=== PATIENT | female | born 1990 | race Caucasian/White ===

== ENCOUNTER 2017-07-12 12:52 | Observation (INO) | payer OTHER ==
[~2017-07-12] VITALS: Ht 160 cm; Wt 58.3 kg
[2017-07-12] VITALS (138 sets, daily range): BP systolic 97–130; BP diastolic 71–86; PULSE 74–86; TEMP 97.5–98.2; O2SAT 96–100
[2017-07-12] MEDS ORDERED: INDERAL 20MG20 MG PO (13:09)
[2017-07-12] MEDS ORDERED: TYLENOL 325MG325 MG PO (13:11)
[2017-07-13 00:18] VITALS: BP 123/68; PULSE 71; TEMP 97.7
[2017-07-13 03:58] VITALS: BP 110/70; PULSE 68; TEMP 98.2
[2017-07-13 06:37] LABS: BASO # 0.1 (0.0-0.2); BASO % 0.8 % (0.0-2.0); EOS # 0.1 (0.0-0.7); EOS % 1.1 % (0-4.0); GRAN # 4.3 (1.4-6.5); GRAN % 53.6 % (42.2-75.2); LYMPH # 2.7 (1.2-3.4); LYMPH % 34.1 % (20.0-51.0); MEAN CELL VOLUME 82 fl (80.0-100.0); MEAN CORPUSCULAR HGB CONC 32 g/dl (33.0-37.0); MEAN PLATELET VOLUME 10.1 fl (7.4-10.4); MONO # 0.8 (0.1-0.6); MONO % 10.1 % (1.7-9.3); PLATELET COUNT 362 K/mm3 (130-400); RED BLOOD COUNT 4.21 M/mm3 (4.10-5.30); REDCELL DISTRIBUTION WIDTH-CV 14.6 % (11.5-14.5)
[2017-07-13 06:54] LABS: HEMATOCRIT 34.6 % (37.0-47.0); HEMOGLOBIN 11.2 g/dl (12.5-16.0); MEAN CORPUSCULAR HEMOGLOBIN 27 pg (27.0-31.0)
[2017-07-13 06:57] LABS: ALBUMIN 4.3 gm/dL (3.5-5.0); BILIRUBIN,TOTAL 0.6 mg/dL (0.0-1.0); CALCIUM 9.5 mg/dL (8.4-10.2); CREATININE, serum 0.88 mg/dL (0.52-1.25); POTASSIUM 3.7 mmol/L (3.4-5.0); TOTAL PROTEIN 7.8 gm/dL (6.4-8.2)
[2017-07-13 08:44] VITALS: BP 122/66; PULSE 96; TEMP 97.9
== END 2017-07-13 18:16 | disposition home or self-care (01) ==
LOC: ICU 12:52 → MEDICAL 12:52 → ICU 15:52 → MEDICAL 17:08
PROVIDERS: Psychiatry & Neurology Neurology
DX: G40.901 Epilepsy, unspecified, not intractable, with status epilepticus (principal); R55 Syncope and collapse
CPT/HCPCS: A9585; G0378; G0379; J2060

== ENCOUNTER → 2017-08-22 | Outpatient (CLI) | payer OTHER ==
[~2017-08-22] MED LIST: INDERAL 20MG20 MG PO; TYLENOL 325MG325 MG PO
== END ==
LOC: MHCPAIN 08:50
DX: G89.29 Other chronic pain (principal); M79.1 Myalgia; M26.609 Unspecified temporomandibular joint disorder, unspecified side
CPT/HCPCS: G0463

== ENCOUNTER → 2017-10-22 | Outpatient (CLI) | payer OTHER | LOC: COL.PAINC 10:16 | DX: G89.29 Other chronic pain (principal); M79.2 Neuralgia and neuritis, unspecified; M79.1 Myalgia | CPT/HCPCS: G0463 ==

== ENCOUNTER → 2017-10-22 | Outpatient (CLI) | payer OTHER | LOC: COL.PAINC 10:18 → MHCPAIN 10:18 | DX: Z53.8 Procedure and treatment not carried out for other reasons (principal) ==